=== PATIENT | female | born 1975 ===

== ENCOUNTER 2020-09-11 09:15 | Inpatient (IN) | payer OTHER ==
[~2020-09-11] VITALS: Ht 157.5 cm; Wt 68.0 kg
[2020-09-11] MEDS ORDERED: SYNTHROID88 MCG PO (12:59)
[2020-09-18] MEDS ORDERED: NEURONTIN600 MG PO (07:24)
[2020-09-18] MEDS ORDERED: IBUPROFEN800 MG PO (07:24)
[2020-09-18] MEDS ORDERED: POLY119PG PO (07:25)
== END 2020-09-18 09:23 | disposition home or self-care (01) | DRG 743 ==
LOC: O/R 09-16 05:30 → OB/GYN 09-16 05:30 → O/R 09-16 08:30 → OB/GYN 09-16 11:31
PROVIDERS: ADMIT Obstetrics & Gynecology; ATTEND Obstetrics & Gynecology
PROC: 0UB70ZZ Excision of Bilateral Fallopian Tubes, Open Approach (ICD-10-PCS; 2020-09-16)
PROC: 0UT90ZZ Resection of Uterus, Open Approach (ICD-10-PCS; principal; 2020-09-16 08:30)
DX: D25.1 Intramural leiomyoma of uterus (principal); N80.0 Endometriosis of uterus; N84.1 Polyp of cervix uteri; N72 Inflammatory disease of cervix uteri; N93.8 Other specified abnormal uterine and vaginal bleeding; N83.8 Other noninflammatory disorders of ovary, fallopian tube and broad ligament